=== PATIENT | male | born 1945 | race Caucasian/White ===

== ENCOUNTER → 2019-11-24 | Day surgery (SDC) | payer OTHER ==
[~2019-11-24] VITALS: Ht 167.6 cm; Wt 77.1 kg
[~2019-11-24] MED LIST: ARICEPT10 M1 PO; COLACE100 MG PO; CRESTOR40 MG PO; FLOMAX0.4 MG PO; LEVEMIR100 UNIT/1 SUBQ; LEVO-T50 MCG PO; METOPROLOL TART25 MG PO; MIDODRINE HCL2.5 M1 PO; MIRALAX119 GM PO; MULTI VITAMIN1 EACH PO; MYRBETRIQ50 MG PO; NOVOLOG FL100 UNIT/M SUBQ; OXYBUTYNIN 5 MG5 M2 PO; ZANTAC 150MG T150 M1 PO; ZOLOFT100 MG PO
--- NOTE | ~2019-11-24 | O ---
[facility] [place] [address] OPERATIVE REPORT Name: LUCIO PALUMBO Room #: REG [facility].#: [id number] Admission: 11/24/19 Attend Phys: Apolonia Graham, Discharge: Date of : 47 Report #: [id number] THIS REPORT FOR: //name// CC: FAM unknown Apolonia Graham DATE OF SERVICE: 11/24/2019 PREOPERATIVE DIAGNOSES: 1. Right index finger trigger finger. 2. Right long finger trigger finger. POSTOPERATIVE DIAGNOSES: 1. Right index finger trigger finger. 2. Right long finger trigger finger. PROCEDURE PERFORMED: 1. Right index finger A1 sadi release. 2. Right long finger A1 sadi release. SURGEON: Apolonia Graham MD ANESTHESIA: Local anesthesia. ESTIMATED BLOOD LOSS: Minimal. TOURNIQUET TIME: None. COMPLICATIONS: None. CONDITION: Stable. DISPOSITION: Recovery room. INDICATIONS: The patient is a 74-year-old male with the above-mentioned diagnosis. He elects for operative treatment. The risks, benefits, alternatives and complications were discussed including but not limited to infection, damage to vessels or nerves, incomplete relief or worsening of any symptoms. Informed consent was obtained. The correct extremity was identified and labeled by myself after verbal confirmation of the patient as well as visual confirmation and signed informed consent. In the preoperative holding area under sterile conditions after informed consent was obtained, a total of 7 mL of 1% lidocaine with 1:100,000 units of epinephrine buffered with bicarbonate was injected subcutaneously at the proposed incision site. He tolerated this well. [facility] [address] [place] [address] OPERATIVE REPORT Name: LUCIO PALUMBO Room #: REG [facility]..#: [id number] Admission: 11/24/19 Attend Phys: Apolonia Graham, Discharge: Date of : 47 Report #: [id number] DESCRIPTION OF PROCEDURE: The patient was brought back to the operating room and placed on the operating room table in a supine position. He received preoperative antibiotics. Tourniquet was placed on the right extremity. Right extremity was sterilely prepped and draped in the usual fashion. Final timeout was taken to verify correct patient, operative procedure, operative site, all concurred. The entire procedure was done with aid of 3.5 loupe magnification. After adequate anesthesia was obtained, oblique incision was made over the right index and long finger, A1 pulleys. Initial incision was carried down through subcutaneous tissue with tenotomy scissors. Each A1 pulleys were seen to be significantly thickened and incised. Careful attention placed to avoiding damage to any other structures and each the fingers were taken through passive and then active range of motion. He was able to make full tight fist and he extended without locking or clicking. He did not have full extension of the long finger PIP joint as was expected due to the chronic nature of the trigger finger. The wound was thoroughly irrigated. Skin was closed with 4-0 nylon suture. Incision was dressed with Adaptic and sterile gauze. He was placed in a bulky dressing. All fingers were pink with brisk capillary refill at the conclusion of case. All sponge and needle counts were correct. The patient was transferred to postoperative recovery room in stable condition. By: [id number] Apolonia Graham MD /nt
[2019-11-24 13:59] VITALS: BP 126/67
[2019-11-24 14:49] VITALS: BP 126/67
== END | disposition home or self-care (01) ==
LOC: OR 11:54
DX: M65.321 Trigger finger, right index finger (principal); M65.331 Trigger finger, right middle finger; I11.0 Hypertensive heart disease with heart failure; I50.9 Heart failure, unspecified; E11.9 Type 2 diabetes mellitus without complications; F03.90 Unspecified dementia, unspecified severity, without behavioral disturbance, psychotic disturbance, mood disturbance, and anxiety; K21.9 Gastro-esophageal reflux disease without esophagitis; G20 Parkinson's disease; Z98.890 Other specified postprocedural states; Z79.899 Other long term (current) drug therapy; Z79.4 Long term (current) use of insulin; Z90.49 Acquired absence of other specified parts of digestive tract; Z98.41 Cataract extraction status, right eye; Z95.1 Presence of aortocoronary bypass graft; Z98.42 Cataract extraction status, left eye; Z96.641 Presence of right artificial hip joint; Z86.73 Personal history of transient ischemic attack (TIA), and cerebral infarction without residual deficits; Z87.448 Personal history of other diseases of urinary system; Z91.041 Radiographic dye allergy status
CPT/HCPCS: 50010; 50101; 50386; 56526; 57006; 57091; 57178